=== PATIENT | male | born 1980 | race Caucasian/White ===

== ENCOUNTER → 2021-04-14 11:55 | Outpatient (CLI) | payer BC, SELFPAY ==
--- NOTE | ~2021-04-14 | US_ITS ---
US renal BI 04/14/2021 12:12 Procedure: Realtime transabdominal ultrasound of the kidneys and bladder. Indication: Atrial region of the vas deferens. Possible congenital renal anomaly. Comparison: No prior studies for comparison. Findings: Renal echotexture is normal bilaterally without hydronephrosis, contour deforming mass or r enal calculus. The right kidney measures 12 cm and left kidney measures 12.3 cm. Bladder within norm al limits. Impression: 1: Unremarkable renal ultrasound. No stones, masses or hydronephrosis. Reviewed, dictated and finalized at location A. ING OFFICER Impression: 1: Unremarkable renal ultrasound. No stones, masses or hydronephrosis.
== END ==
PROVIDERS: Visit Provider Physician Assistant Medical
DX: Q55.3 Atresia of vas deferens (principal)
CPT/HCPCS: 76775